=== PATIENT | female | born 1975 | race American Indian/Alaskan Native ===

== ENCOUNTER 2017-08-26 11:10 | Outpatient (CLI) | payer OTHER ==
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
--- NOTE | 2017-08-26 12:29 | XRay Report ---
RIGHT KNEE RADIOGRAPHS INDICATION: Back, neck, shoulder and knee injury. COMPARISON: None similar. FINDINGS: AP and lateral right knee radiographs demonstrate intact articulation. Slight medial projecting tibial spine degenerative prominence. No suprapatellar effusion. CONCLUSION: No acute bony abnormality with slight right knee osteoarthrosis possible, as described. Please correlate. Thank you for the opportunity to participate in this patient's care.
[2017-08-26] MEDS ORDERED: PROVENTIL IH ONE (12:39)
== END 2017-08-26 11:11 | disposition home or self-care (01) ==
LOC: PF 11:10
PROVIDERS: ATTEND Internal Medicine
DX: S89.91XA Unspecified injury of right lower leg, initial encounter (principal); S89.92XA Unspecified injury of left lower leg, initial encounter; S49.91XA Unspecified injury of right shoulder and upper arm, initial encounter; S19.9XXA Unspecified injury of neck, initial encounter; S39.92XA Unspecified injury of lower back, initial encounter; J45.909 Unspecified asthma, uncomplicated; G47.30 Sleep apnea, unspecified; F32.9 Major depressive disorder, single episode, unspecified; G25.81 Restless legs syndrome; F43.10 Post-traumatic stress disorder, unspecified; F40.298 Other specified phobia; X58.XXXA Exposure to other specified factors, initial encounter; Y93.89 Activity, other specified; Y92.89 Other specified places as the place of occurrence of the external cause; Y99.8 Other external cause status
CPT/HCPCS: 94060; 94640

== ENCOUNTER 2018-02-14 17:18 | Emergency (ER) | payer SELFPAY ==
[2018-02-14 17:48] LABS: Basophils # (Auto) 0.1 K/mm3 (0.0-0.1); Basophils % (Auto) 1.1 % (0.0-1.8); Eosinophils # (Auto) 0.1 K/mm3 (0.0-0.4); Eosinophils % (Auto) 2.4 % (0.0-4.3); Hematocrit 22.9 % (30.3-42.9); Hemoglobin 6.9 gm/dl (10.1-14.3); Lymphocytes # (Auto) 2.1 K/mm3 (1.2-5.4); Lymphocytes % (Auto) 36.4 % (13.4-35.0); Mean Corpuscular HGB Conc 29 % (30-34); Mean Corpuscular Hemoglobin 19 pg (28-32); Mean Corpuscular Volume 68 fl (79-97); Monocytes # (Auto) 0.4 K/mm3 (0.0-0.8); Monocytes % (Auto) 6.8 % (0.0-7.3); Platelet Count 478 K/mm3 (140-440); Red Blood Count 3.45 M/mm3 (3.65-5.03); Red Cell Distribution Width 24.7 % (13.2-15.2)
[2018-02-14 17:52] LABS: BUN/Creatinine Ratio 10; Blood Urea Nitrogen 6 mg/dL (7-17); Calcium 8.3 mg/dL (8.4-10.2); Hemolysis Index 5
[2018-02-14 20:15] VITALS: BP 127/75
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
== END 2018-02-14 21:38 | disposition home or self-care (01) ==
LOC: ED 17:18
DX: D50.9 Iron deficiency anemia, unspecified (principal); J45.909 Unspecified asthma, uncomplicated; F17.200 Nicotine dependence, unspecified, uncomplicated
CPT/HCPCS: 36415; 80048; 85025; 99283

== ENCOUNTER 2020-07-14 13:21 | Emergency (ER) | payer OTHER ==
[2020-07-14 14:20] LABS: Basophils # (Auto) 0.1 K/mm3 (0.0-0.1); Basophils % (Auto) 1.2 % (0.0-1.8); Eosinophils # (Auto) 0.2 K/mm3 (0.0-0.4); Hematocrit 32.9 % (30.3-42.9); Hemoglobin 11.2 gm/dl (10.1-14.3); Lymphocytes # (Auto) 1.9 K/mm3 (1.2-5.4); Lymphocytes % (Auto) 26.7 % (13.4-35.0); Mean Corpuscular HGB Conc 34 % (30-34); Mean Corpuscular Volume 93 fl (79-97); Monocytes # (Auto) 0.4 K/mm3 (0.0-0.8); Platelet Count 254 K/mm3 (140-440); Red Blood Count 3.52 M/mm3 (3.65-5.03); Red Cell Distribution Width 17.1 % (13.2-15.2)
--- NOTE | 2020-07-14 14:38 | XRay Report ---
CHEST 2 VIEWS INDICATION / CLINICAL INFORMATION: Chest Pain. Shortness of breath. COMPARISON: None available. FINDINGS: SUPPORT DEVICES: None. HEART / MEDIASTINUM: No significant abnormality. LUNGS / PLEURA: No significant pulmonary or pleural abnormality. No pneumothorax. ADDITIONAL FINDINGS: There is a severe compression fracture of T9 that is likely chronic. IMPRESSION: 1. No acute abnormality of the chest. 2. Severe compression fracture of T9 is likely chronic. Please correlate with the clinical findings. Signer Name: Edvin Vela MD Signed: 07/14/2020 2:34 PM Workstation Name: [id number]
[2020-07-14 14:40] LABS: Blood Urea Nitrogen 9 mg/dL (7-17); Calcium 8.9 mg/dL (8.4-10.2); Hemolysis Index 4
[2020-07-14 14:43] LABS: BUN/Creatinine Ratio 13
[2020-07-14] MEDS ORDERED: IPRATROPIUM/ALBUTEROL SULFATE 3 ML AMPUL.NEB IH ONE (16:00)
--- NOTE | 2020-07-14 16:03 | Emergency Department Report ---
HPI - General Chief Complaint: Chest Pain Time Seen by Provider: 07/14/20 15:50 - HPI HPI: Room 4 The patient is a 44-year-old female present with a chief complaint of shortness of breath and cough. The patient states for the past 4 days she has had sh ortness of breath and cough occasionally productive of dark yellow sputum. Patient states she had intermittent right-sided chest pain 3 days ago that felt like gas but has since resolved and not returned. Patient states now she feels like she has chest congestion. Patient denies history of fever. Patient denies any known contact with COVID positive patient ED Past Medical Hx - Past Medical History Previous Medical History?: Yes Hx Asthma: Yes Additional medical history: larynx fx 2009 - Surgical History Additional Surgical History: TRACH PLACEMENT 2009, BILATERAL PNEUMOTHORAX W/ BILATERAL CHEST TUBES, FEEDING TUBE REMOVED - Family History Family history: no significant - Social History Smoking Status: Current Every Day Smoker (1/4 pack/day) Substance Use Type: None (Denies illicit drug use) - Medications Home Medications: Home Medications Medication Instructions Recorded Confirmed Last Taken Type Albuterol Mdi (or & Nicu Only) 05/22/14 05/22/14 Unknown History [ProAir] Albuterol Mdi (or & Nicu Only) 2 puff IH QID PRN 05/22/14 05/22/14 Unknown History [Proair] Citalopram Hydrobromide [Celexa] 05/22/14 05/22/14 Unknown History Fluticasone/Salmeterol [Advair 05/22/14 05/22/14 Unknown History Diskus 100-50 mcg] buPROPion [Wellbutrin] 05/22/14 05/22/14 Unknown History clonazePAM [KlonoPIN] 05/22/14 05/22/14 Unknown History Ferrous Sulfate [Feosol 325 MG tab] 325 mg PO TID #90 tablet 02/14/18 Unknown Rx Albuterol Mdi (or & Nicu Only) 2 puff IH QID PRN #8.5 gram 07/14/20 Unknown Rx [ProAir HFA Inhaler] Azithromycin [Zithromax Z-KAYY] 0 mg PO DAILY #6 tab 07/14/20 Unknown Rx guaiFENesin [Guaifenesin] 400 mg PO Q4H PRN #30 tablet 10/01/20 Unknown Rx ED Review of Systems ROS: Stated complaint: SHORTNESS OF BREATH Other details as noted in HPI Constitutional: denies: fever Respiratory: cough, shortness of breath Cardiovascular: as per HPI Endocrine: no symptoms reported Physical Exam - Physical Exam Vital Signs: Vital Signs 07/14/20 07/14/20 07/14/20 13:41 13:42 15:07 Temperature 98.8 F 98.8 F Pulse Rate 77 71 Respiratory 16 18 Rate Blood Pressure 134/85 134/85 O2 Sat by Pulse 100 99 100 Oximetry 07/14/20 15:15 Temperature Pulse Rate 63 Respiratory 19 Rate Blood Pressure 136/83 O2 Sat by Pulse 100 Oximetry Physical Exam: GENERAL: The patient is well-developed well-nourished female lying on stretcher not appearing to be in acute distress. [] HEENT: Normocephalic. Atraumatic. Extraocular motions are intact. Patient has moist mucous membranes. NECK: Supple. Trachea midline CHEST/LUNGS: Coarse breath sounds. There is no respiratory distress noted. HEART/CARDIOVASCULAR: Regular. There is no tachycardia. There is no gallop rub or murmur. ABDOMEN: Abdomen is soft, nontender. Patient has normal bowel sounds. There is no abdominal distention. SKIN: There is no rash. There is no diaphoresis. NEURO: The patient is awake, alert, and oriented. The patient is cooperative. The patient has normal speech MUSCULOSKELETAL: There is no evidence of acute injury. ED Course Vital Signs 07/14/20 07/14/20 07/14/20 13:41 13:42 15:07 Temperature 98.8 F 98.8 F Pulse Rate 77 71 Respiratory 16 18 Rate Blood Pressure 134/85 134/85 O2 Sat by Pulse 100 99 100 Oximetry 07/14/20 15:15 Temperature Pulse Rate 63 Respiratory 19 Rate Blood Pressure 136/83 O2 Sat by Pulse 100 Oximetry ED Medical Decision Making - Lab Data Result diagrams: 07/14/20 14:04 07/14/20 14:04 Laboratory Tests 07/14/20 07/14/20 07/14/20 14:04 14:04 14:04 WBC 7.1 RBC 3.52 L Hgb 11.2 Hct 32.9 MCV 93 MCH 32 MCHC 34 RDW 17.1 H Plt Count 254 Lymph % (Auto) 26.7 Lipscomb % (Auto) 6.0 Eos % (Auto) 3.0 Baso % (Auto) 1.2 Lymph # (Auto) 1.9 Lipscomb # (Auto) 0.4 Eos # (Auto) 0.2 Baso # (Auto) 0.1 Seg Neutrophils % 63.1 Seg Neutrophils # 4.5 Sodium 139 Potassium 3.3 L Chloride 99.0 Carbon Dioxide 30 Anion Gap 13 BUN 9 Creatinine 0.7 Estimated GFR > 60 BUN/Creatinine Ratio 13 Glucose 88 Calcium 8.9 Troponin T < 0.010 HCG, Qual Negative 07/14/20 17:31 WBC RBC Hgb Hct MCV MCH MCHC RDW Plt Count Lymph % (Auto) Lipscomb % (Auto) Eos % (Auto) Baso % (Auto) Lymph # (Auto) Lipscomb # (Auto) Eos # (Auto) Baso # (Auto) Seg Neutrophils % Seg Neutrophils # Sodium Potassium Chloride Carbon Dioxide Anion Gap BUN Creatinine Estimated GFR BUN/Creatinine Ratio Glucose Calcium Troponin T < 0.010 HCG, Qual - EKG Data -: EKG Interpreted by Me EKG shows normal: sinus rhythm Rate: normal - EKG Data When compared to previous EKG there are: previous EKG unavailable Interpretation: nonspecific ST-T wave yaritza (T wave inversions in leads III and V3) - Radiology Data Radiology results: report reviewed (Chest x-ray), image reviewed (Chest x-ray) interpreted by me: Chest x-ray-no focal infiltrates, no pneumothorax. Thoracic vertebral wedge fracture [facility] [address] [place] [address] XRay Report Signed Patient: RAUL SALES MR#: [id number] : 1975 Acct:[id number] Age/Sex: 44 / F ADM Date: 07/14/20 Loc: ED Attending Dr: Ordering Physician: ED MD SANTHOSH Date of Service: 07/14/20 Procedure(s): XR chest routine 2V Accession Number(s): [id number] cc: ED MD SANTHOSH Fluoro Time In Minutes: CHEST 2 VIEWS INDICATION / CLINICAL INFORMATION: Chest Pain. Shortness of breath. COMPARISON: None available. FINDINGS: SUPPORT DEVICES: None. HEART / MEDIASTINUM: No significant abnormality. LUNGS / PLEURA: No significant pu lmonary or pleural abnormality. No pneumothorax. ADDITIONAL FINDINGS: There is a severe compression fracture of T9 that is likely chronic. IMPRESSION: 1. No acute abnormality of the chest. 2. Severe compression fracture of T9 is likely chronic. Please correlate with the clinical findings. Signer Name: Edvin Vela MD Signed: 07/14/2020 2:34 PM Workstation Name: [id number] Transcribed By: FELISA Dictated By: Edvin Vela MD Electronically Authenticated By: Edvin Vela MD Signed Date/Time: 07/14/20 1434 - Differential Diagnosis Bronchitis, pneumonia, ACS, Critical care attestation.: If time is entered above; I have spent that time in minutes in the direct care of this critically ill patient, excluding procedure time. ED Disposition Clinical Impression: Acute bronchitis Disposition: - TO HOME OR SELFCARE Is pt being admited?: No Does the pt Need Aspirin: No Condition: Stable Instructions: Acute Bronchitis (ED) Additional Instructions: Return to the emergency department should you develop worsening symptoms, inabi lity to tolerate food or liquids, high fever or any other concerns Prescriptions: guaiFENesin [Guaifenesin] 400 mg PO Q4H PRN #30 tablet PRN Reason: Cough Albuterol Mdi (or & Nicu Only) [ProAir HFA Inhaler] 2 puff IH QID PRN #8.5 gram PRN Reason: Shortness Of Breath Azithromycin [Zithromax Z-KAYY] 0 mg PO DAILY #6 tab Referrals: CHRISTIANNE REDDING MD [Primary Care Provider] - 3-5 Days Time of Disposition: 18:11
[2020-07-14 18:38] VITALS: BP 125/70
== END 2020-07-14 18:38 | disposition home or self-care (01) ==
LOC: ED 13:21
DX: J20.9 Acute bronchitis, unspecified (principal); F17.200 Nicotine dependence, unspecified, uncomplicated; Z98.890 Other specified postprocedural states; Z79.899 Other long term (current) drug therapy
CPT/HCPCS: 36415; 71046; 80048; 84484; 84703; 85025; 93005; 94640

== ENCOUNTER 2020-12-18 13:36 | Emergency (ER) | payer OTHER ==
[2020-12-18 13:54] VITALS: BP 140/89
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
== END 2020-12-18 15:45 | disposition home or self-care (01) ==
LOC: ED 13:36
DX: S39.012A Strain of muscle, fascia and tendon of lower back, initial encounter (principal); J45.909 Unspecified asthma, uncomplicated; Z98.890 Other specified postprocedural states; Z79.899 Other long term (current) drug therapy; V49.59XA Passenger injured in collision with other motor vehicles in traffic accident, initial encounter; Y92.410 Unspecified street and highway as the place of occurrence of the external cause; Y93.89 Activity, other specified; Y99.8 Other external cause status
CPT/HCPCS: 72100; 99283